=== PATIENT | male | born 1995 | race Caucasian/White ===

== ENCOUNTER 2019-01-28 09:43 | Emergency (ER) | payer OTHER ==
[2019-01-28] MEDS: ONDANSETRON (ODT) 4 MG TAB ODT (10:12)
[2019-01-28] MEDS: HYDROCODONE/APAP (5/325) TAB PO (10:13)
== END 2019-01-28 12:11 | disposition home or self-care (01) ==
LOC: FTE 09:43
DX: M54.2 Cervicalgia (principal); R07.89 Other chest pain; R10.30 Lower abdominal pain, unspecified; J45.909 Unspecified asthma, uncomplicated
CPT/HCPCS: 71045; 76705; 99284-25